=== PATIENT | female | born 1970 | race Caucasian/White ===

== ENCOUNTER 2018-12-01 23:46 | Emergency (ER) | payer MEDICAID ==
[~2018-12-01] VITALS: Ht 157.5 cm; Wt 68.6 kg
[~2018-12-01 23:46] MED LIST: PREN1TAB62 PO
[2018-12-01 23:51] VITALS: Ht 157.5 cm; Wt 68.6 kg
--- NOTE | 2018-12-02 00:24 | ERD ---
ER Documentation Chief Complaint Chief Complaint PT REPORTS L BREAST PAIN WITH PALPATION X 1 HOUR DENIES CP HPI This is a 48-year-old female presents emergency department with complaints of left-sided chest pain that radiates to left upper back. Stated this happened today an hour prior to arrival here in the emergency department. Pain was described as sharp. Denies family history of heart attack before the age of 50. Patient is not a smoker. Not on any prescribed medications. LMP: 2 weeks ago. G2, . Denies headache, head injury, loss of consciousness, dizziness, neck pain, neck stiffness, throat pain, difficulty swallowing, difficulty breathing lying flat, shoulder pain, chest pain, back pain, abdominal pain, nausea, vomiting, constipation, diarrhea, urinary symptoms, or possibility being pregna nt, loss of bowel and bladder control, trauma, injury, falls, difficulty walking due to pain, numbness or tingling sensation, calf pain, recent travel, recent major surgery in the last 3 weeks, calf pain, recent long travel, recent exposure to any illness, recent antibiotic use in the last 3 months, fever, chills, seizures. Past medical history: Surgical history: Social: Denies smoking, use of alcoholic beverages, use of illegal drugs. ROS All systems reviewed and are negative except as per history of present illness. Medications Home Meds Active Scripts Hydroxyzine Hcl* (Hydroxyzine Hcl*) 50 Mg Tablet, 50 MG PO Q6H PRN for ANXIETY, #30 TAB Prov:PASILABAN,KLAR F 12/02/18 Ibuprofen* (Motrin*) 600 Mg Tab, 600 MG PO Q6H PRN for PAIN AND OR ELEVATED TEMP, #30 TAB Prov:ESTRELLITAILABARTOLOME,LEAHAR F 12/02/18 Reported Medications Vit-Iron Fumarate-FA ( Vitamin Tablet) 1 Each Tablet, 1 TAB PO DAILY, TAB 08/05/14 Allergies Allergies: Coded Allergies: No Known Allergies (Verified Allergy, Unknown, 08/05/14) PMhx/Soc History of Surgery: Yes (caesarian section 2004) Anesthesia Reaction: No Hx Neurological Disorder: No Hx Respiratory Disorders: No Hx Cardiac Disorders: No Hx Psychiatric Problems: No Hx Miscellaneous Medical Probl: No Hx Alcohol Use: No Hx Substance Use: No Hx Tobacco Use: No Physical Exam Vitals Physical Exam Const: No acute distress Head: Atraumatic Eyes: Normal Conjunctiva ENT: Normal External Ears, Nose and Mouth. Neck: Full range of motion. No meningismus. Resp: Clear to auscultation bilaterally. Chest/breast area: Examined with female clock smith, Sandy RN. No vesicular lesions. No masses. No inverted nipples. No signs of malignancies. No signs of deformities. No crepitus. Cardio: Regular rate and rhythm, no murmurs Abd: Soft, non tender, non distended. Normal bowel sounds Skin: No petechiae or rashes Back: No midline or flank tenderness. C-spine/T-spine/L-spine are midline with good and full range of motion without swelling/deformity/bulging/point of tenderness. Ext: No cyanosis, or edema Neur: Awake and alert. No neurological deficits. Psych: Normal Mood and Affect Results 24 hrs Laboratory Tests Test 12/02/18 00:55 POC Beta HCG, Qualitative NEGATIVE Current Medications Medications Dose Sig/Satinder Start Time Status Last (Trade) Ordered Route PRN Stop Time Admin Dose Reason Admin Aspirin 325 mg ONCE ONCE 12/02/18 DC 12/02/18 (Aspirin) PO 00:30 01:02 12/02/18 00:31 Procedures/MDM Diagnostic tests: EKG: Normal sinus rhythm with a ventricular rate of 76 bpm. No STEMI. Read by supervising physician. POC urine : Negative. Treatment: Aspirin. Re-evaluation: Denies chest pain, breast pain, back pain. Stated that she feels much better at this time and that she is ready to go home. Differential diagnosis I have low suspicion for acute myocardial infarction, acute coronary syndrome, pneumonia, pneumothorax, hemothorax, breast malignancy. Final diagnosis: Anxiety. Chest wall pain. Prescription: Motrin. Hydroxyzine. Follow-up with PCP in the next 24-48 hours. Patient was advised to have her primary care physician schedule a mammogram. Come back here in the emergency department for any new symptoms or any worsening symptoms. All questions and concerns were answered. Patient and family members verbalized understanding and agreed with plan of care. Hemodynamically stable on discharge. Departure Diagnosis: Primary Impression: Breast pain Additional Impressions: Chest wall pain Anxiety Costochondritis Condition: Stable Additional Instructions: Follow-up with PCP in the next 24-48 hours. Patient was advised to have her primary care physician schedule a mammogram. Come back here in the emergency department for any new symptoms or any worsening symptoms. PASILABAN,KLAR F Dec 02, 2018 00:24
[2018-12-02] MEDS ORDERED: ASPIRIN 325 MG TAB PO ONE (00:30)
[2018-12-02] MEDS ORDERED: IBUP-1542 PO (01:18)
[2018-12-02] MEDS ORDERED: HYDR50TA15 PO (01:18)
[2018-12-02 01:53] VITALS: BP 111/65; PULSE 74; RESP 16
== END 2018-12-02 01:53 | disposition home or self-care (01) ==
LOC: FTE 23:46
DX: N64.4 Mastodynia (principal); F41.9 Anxiety disorder, unspecified; M94.0 Chondrocostal junction syndrome [Tietze]
CPT/HCPCS: 81025; 93005; Z7502; Z7610